=== PATIENT | female | born 1960 | race American Indian/Alaskan Native ===

== ENCOUNTER 2020-01-19 14:06 | Outpatient (CLI) | payer OTHER ==
--- NOTE | 2020-01-19 18:05 | Mammography Report ---
DIGITAL SCREENING MAMMOGRAM WITH CAD, 01/19/2020 INDICATION: Routine screening mammography. TECHNIQUE: Digital bilateral 2D mammography was obtained in the craniocaudal and mediolateral obliq ue projections. This examination was interpreted with the benefit of Computer-Aided Detection analysi s. COMPARISON: 02/22/2018, 12/03/2015 FINDINGS: Breast Density: The breasts are heterogeneously dense, which may obscure small masses. There is no evidence of dominant mass, suspicious calcifications or architectural distortion in the r ight breast. There is a new 5 mm rounded nodular density projecting in the deep retroareolar left les ast on the 6.5 cm deep to the nipple. This is only seen on the MLO view, so the exact location is unc lear. No other significant interval change. IMPRESSION: New 5 mm left nodular density, as outlined above. Recommend further evaluation with spot compression views and possible ultrasound. Follow up recommendation: Left spot compression views with possible ultrasound Category 0: Incomplete. Needs additional imaging evaluation and/or prior mammograms for comparison. A "normal" or negative report should not discourage follow up or biopsy of a clinically significant f inding. A written summary of these findings will be mailed to the patient. The patient will be entered into a mammography reporting system which will generate a reminder letter for the patient's next appointmen t at the appropriate interval. The [employer] recommends yearly mammograms starting at age 40 and continuing as l jg as a woman is in good health. Breast MRI is recommended for women with an approximate 20-25% or greater lifetime risk of breast cancer, including women with a strong family history of breast or ova ziggy cancer or who have been treated for Hodgkin's disease. Signer Name: Evi Nuñez MD Signed: 01/19/2020 6:00 PM Workstation Name: [email or web address]
== END 2020-01-19 14:07 | disposition home or self-care (01) ==
LOC: SPVWC 14:06
PROVIDERS: ATTEND Internal Medicine
DX: Z12.31 Encounter for screening mammogram for malignant neoplasm of breast (principal)
CPT/HCPCS: 77067

== ENCOUNTER 2020-05-29 12:49 | Outpatient (CLI) | payer OTHER ==
--- NOTE | 2020-05-29 14:47 | Ultrasound Report ---
LEFT DIGITAL DIAGNOSTIC MAMMOGRAM WITH CAD CONVENTIONAL, 05/29/2020 LEFT LIMITED BREAST ULTRASOUND CLINICAL INFORMATION / INDICATION: Patient presents as a callback from screening mammogram for furthe r evaluation of a nodular density in the left breast. F/U abnormal mammogram TECHNIQUE: Digital left mammographic imaging was performed. Spot compression views were obtained. Juan ited ultrasound was performed. This examination was interpreted with the benefit of Computer-Aided De tection (CAD) analysis. COMPARISON: Prior mammogram 01/19/2020 FINDINGS: Breast Density: The breasts are heterogeneously dense, which may obscure small masses. MAMMOGRAPHIC FINDINGS: The previously described nodular density in the posterior central left breast does not persist on additional views, most compatible with overlapping fibroglandular tissue. Targete d ultrasound performed for confirmation. ULTRASOUND FINDINGS: Targeted ultrasound evaluation was performed of the area of interest. Targeted ultrasound of the central left breast reveals an incidental oval circumscribed hypoechoic mass versu s prominent fat lobule in the 6:00 position located 2 cm from the nipple measuring up to 9 x 5 x 6 mm . The mass is parallel. No internal vascularity is demonstrated. There is no sonographic correlate fo r the previously questioned nodular density, confirming that this represents overlapping fibroglandul ar tissue. IMPRESSION: 1. The previously described nodular density does not persist on additional views and is without sonog raphic correlate, compatible with overlapping fibroglandular tissue. 2. An incidental oval circumscribed hypoechoic mass versus prominent fat lobule in the 6:[address] is considered probably benign, recommend left breast ultrasound in 6 months to ensure stability. Follow up recommendation: Short term follow up in 6 months. BI-RADS Category 3: Probably Benign. Followup in 6 months. A "normal" or negative report should not discourage follow up or biopsy of a clinically significant f inding. A written summary of these findings will be mailed to the patient. The patient will be entered into a mammography reporting system which will generate a reminder letter for the patient's next appointmen t at the appropriate interval. According to the [employer], yearly mammograms are recommended starting at age 40 and continuing as long as a woman is in good health. Breast MRI is recommended for women with an joya roximately 20-25% or greater lifetime risk of breast cancer, including women with a strong family his tory of breast or ovarian cancer and women who have been treated for Hodgkin's disease. Signer Name: Rose Davidson MD Signed: 05/29/2020 2:43 PM Workstation Name: [email or web address]
== END 2020-05-29 12:50 | disposition home or self-care (01) ==
LOC: SPVWC 12:49
PROVIDERS: ATTEND Internal Medicine
DX: R92.8 Other abnormal and inconclusive findings on diagnostic imaging of breast (principal)

== ENCOUNTER 2021-01-25 13:14 | Outpatient (CLI) | payer OTHER ==
--- NOTE | 2021-01-26 11:02 | Mammography Report ---
DIGITAL SCREENING MAMMOGRAM WITH CAD, 01/25/2021 CLINICAL INFORMATION / INDICATION: Routine screening mammography. SCREENING MAMMO TECHNIQUE: Digital bilateral 2D mammography was obtained in the craniocaudal and mediolateral obliqu e projections. This examination was interpreted with the benefit of Computer-Aided Detection analysis . COMPARISON: 01/19/2020. FINDINGS: Breast Density: There are scattered areas of fibroglandular density. No dominant mass, suspicious calcifications, or architectural distortion in either breast. Bilateral benign-appearing calcification remain. IMPRESSION: No mammographic evidence of malignancy. Follow up recommendation: Routine yearly BI-RADS Category 2: Benign. A "normal" or negative report should not discourage follow up or biopsy of a clinically significant f inding. A written summary of these findings will be mailed to the patient. The patient will be entered into a mammography reporting system which will generate a reminder letter for the patient's next appointmen t at the appropriate interval. The [employer] recommends yearly mammograms starting at age 40 and continuing as l jg as a woman is in good health. Breast MRI is recommended for women with an approximate 20-25% or greater lifetime risk of breast cancer, including women with a strong family history of breast or ova ziggy cancer or who have been treated for Hodgkin's disease. Signer Name: Royce Tucker MD Signed: 01/26/2021 10:57 AM Workstation Name: [id number]
== END 2021-01-25 13:15 | disposition home or self-care (01) ==
LOC: SPVWC 13:14
PROVIDERS: ATTEND Internal Medicine
DX: Z12.31 Encounter for screening mammogram for malignant neoplasm of breast (principal); N64.89 Other specified disorders of breast
CPT/HCPCS: 77067